=== PATIENT | female | born 1980 | race Caucasian/White ===

== ENCOUNTER → 2016-05-13 | Outpatient (CLI) | payer BC ==
[~2016-05-13] MED LIST: BCPILLS PO; PRLSR20 PO
[2016-05-13 11:17] LABS: BASO % 0.3 %; BASO ABS # 0.02 K/uL (0-0.2); COMPLETE YES; EOS % 1.5 %; HEMATOCRIT 41.6 % (37-47); IG% 0.3 %; LYMPH % 26.2 %; LYMPH ABS # 1.94 K/uL (1.2-3.4); MEAN CELL VOLUME 82.9 fL (80-100); MEAN CORPUSCULAR HEMOGLOBIN 28.5 pg (25-34); MEAN CORPUSCULAR HGB CONC 34.4 g/dl (32-36); MEAN PLATELET VOLUME 10.2 fL (7.4-10.4); MONO % 8.2 %; NEUT % 63.5 %; PLATELET COUNT 292 K/uL (130-400); RED BLOOD COUNT 5.02 M/uL (4.2-5.4)
[2016-05-13 11:58] LABS: ALKALINE PHOSPHATASE 48 U/L (45-117); ALT/SGPT 27 U/L (12-78); AST/SGOT 17 U/L (15-37); BLOOD UREA NITROGEN 13 mg/dl (7-18); BUN/CREATININE RATIO 18.7 (10-20); CALCIUM 9.1 mg/dl (8.5-10.1); CARBON DIOXIDE 26 mmol/L (21-32); CHLORIDE 102 mmol/L (98-107); CREATININE 0.67 mg/dl (0.60-1.20); GLUCOSE 95 mg/dl (70-99); POTASSIUM 3.9 mmol/L (3.5-5.1); SODIUM 138 mmol/L (136-145)
[2016-05-13 12:13] LABS: C-REACTIVE PROTEIN < 0.29 mg/dl (0-0.29); MAGNESIUM 2.3 mg/dl (1.8-2.4); RHEUMATOID FACTOR < 10.0 U/mL (0-15); THYROID STIMULATING HORMONE 0.491 uIu/ml (0.300-4.500)
[2016-05-13 12:26] LABS: LYME DISEASE AB IGG NEG (NEG)
[2016-05-13 12:27] LABS: LYME DISEASE AB IGM NEG (NEG)
== END | disposition home or self-care (01) ==
LOC: C.LAB1850 10:25
PROVIDERS: ATTEND Family Medicine
DX: M25.50 Pain in unspecified joint (principal); R53.83 Other fatigue; R00.2 Palpitations

== ENCOUNTER → 2016-05-14 | Outpatient (CLI) | payer BC ==
--- NOTE | 2016-05-14 11:10 | DIAGNOSTIC IMAGING REPORT ---
THYROID ULTRASONOGRAPHY CLINICAL HISTORY: Thyromegaly COMPARISON STUDY: No previous studies for comparison. FINDINGS: The right lobe measures 5.9 x 1.6 x 1.3 cm. The left lobe measures 5.2 x 1.6 x 1.4 cm. There is minimal gland heterogeneity. No nodules are visualized. IMPRESSION: No thyroid masses identified. Electronically signed by: Peter Borges M.D. 05/14/2016 11:08 AM Dictated Date/Time: 05/14/2016 11:07 AM
== END | disposition home or self-care (01) ==
LOC: C.ULTR 10:35
PROVIDERS: ATTEND Family Medicine
DX: E04.9 Nontoxic goiter, unspecified (principal)

== ENCOUNTER → 2016-05-27 | Outpatient (CLI) | payer BC ==
--- NOTE | 2016-05-27 14:56 | DIAGNOSTIC IMAGING REPORT ---
LEFT FOOT MIN 3 VIEWS ROUTINE CLINICAL HISTORY: R76.8 LENIN [id number] [id number] pain COMPARISON: None. DISCUSSION: The bones and joint spaces appear intact. There is no evidence of fracture, dislocation or bony disease. There is no evidence for soft tissue swelling. IMPRESSION: Negative study. Electronically signed by: Greyson Lara M.D. 05/27/2016 2:55 PM Dictated Date/Time: 05/27/2016 2:53 PM
[2016-05-27 15:58] LABS: TOTAL IRON BINDING CAPACITY 335 mcg/dl (250-450)
== END | disposition home or self-care (01) ==
LOC: C.RAD1850 14:43
PROVIDERS: ATTEND Internal Medicine Rheumatology
DX: M13.0 Polyarthritis, unspecified (principal); Q79.6 Ehlers-Danlos syndromes; R76.8 Other specified abnormal immunological findings in serum

== ENCOUNTER → 2016-06-24 | Outpatient (CLI) | payer BC ==
[2016-06-30 04:37] LABS: ANTI-CENTROMERE AB <1.0 NEG AI (<1.0 NEG); ANTI-SS-A <1.0 NEG AI (<1.0 NEG); ANTI-SS-B <1.0 NEG AI (<1.0 NEG); DNA ds CRITHIDIA NEGATIVE (NEGATIVE); Sm Antibody <1.0 NEG AI (<1.0 NEG)
[2016-07-01 07:18] LABS: ANA TITER 1:40 TITER (<1:40)
== END | disposition home or self-care (01) ==
LOC: C.LAB1850 10:42
PROVIDERS: ATTEND Internal Medicine Rheumatology
DX: R53.83 Other fatigue (principal); R76.8 Other specified abnormal immunological findings in serum; Q79.6 Ehlers-Danlos syndromes

== ENCOUNTER → 2016-11-11 | Outpatient (CLI) | payer BC ==
[~2016-11-11] MED LIST changes: +OPTIRAY 320 IV PRN
--- NOTE | 2016-11-11 14:25 | DIAGNOSTIC IMAGING REPORT ---
(CHEST FOR PE) ANGIO WITH CT DOSE: 399.71 mGy.cm HISTORY: Chest pain dyspnea TECHNIQUE: Multiaxial CT images of the chest were performed following the intravenous administration of contrast to evaluate the pulmonary arteries. Maximal intensity projection images were also obtained. A dose lowering technique was utilized adhering to the principles of ALARA. COMPARISON STUDY: None. FINDINGS: There is a normal caliber thoracic aorta with no evidence for dissection. There is no evidence for pulmonary embolus. No pleural effusions. No pneumothorax. The liver and spleen are unremarkable. No mediastinal or hilar lymphadenopathy. The central airways are patent. The lungs are clear. IMPRESSION: No evidence for pulmonary embolus. The lungs are clear. The above report was generated using voice recognition software. It may contain grammatical, syntax or spelling errors. Electronically signed by: Greyson Lara M.D. 11/11/2016 2:24 PM Dictated Date/Time: 11/11/2016 2:21 PM
== END | disposition home or self-care (01) ==
LOC: C.CTS 14:05
PROVIDERS: ATTEND Internal Medicine Cardiovascular Disease
DX: R06.02 Shortness of breath (principal); R07.89 Other chest pain; N64.4 Mastodynia

== ENCOUNTER → 2016-11-11 | Outpatient (CLI) | payer BC ==
[~2016-11-11] MED LIST changes: -OPTIRAY 320 IV PRN
--- NOTE | 2016-11-11 16:00 | MAMMOGRAPHY REPORT ---
UNILATERAL LEFT DIGITAL DIAGNOSTIC MAMMOGRAM TOMOSYNTHESIS WITH CAD AND TARGETED LEFT ULTRASOUND: 10/17 CLINICAL HISTORY: The patient reports intermittent left breast/chest pain for approximately one month , which she reports is deep to the nipple. She also reports that her clinician noticed asymmetric sw elling of the left axilla compared to the right. The patient denies any palpable lumps or nipple dis charge. TECHNIQUE: Breast tomosynthesis in addition to standard 2D mammography was performed. Current study was also evaluated with a Computer Aided Detection (CAD) system. Left CC and MLO 2-D and tomosynthes is images were obtained. COMPARISON: Comparison is made to exams dated: 12/28/2012 ultrasound and 12/28/2012 mammogram - [facility]. BREAST COMPOSITION: The tissue of the left breast is heterogeneously dense, which may obscure small masses. FINDINGS: There are no suspicious masses, calcifications, or areas of architectural distortion noted mammographically. There has been no significant interval change compared to the prior exam. Targeted ultrasound was performed of the area of pain pointed out by the patient in the left subareol ar breast. No suspicious masses or other suspicious sonographic abnormalities are noted in this jese on. Targeted ultrasound was also performed of the left axillary region in the region of asymmetric s welling pointed out by the patient. No suspicious masses or other suspicious sonographic abnormaliti es are evident. Incidentally noted are morphologically normal left axillary lymph nodes, without zane dence of axillary adenopathy. IMPRESSION: ACR BI-RADS CATEGORY 2: BENIGN, TARGETED ULTRASOUND ACR BI-RADS CATEGORY 2: BENIGN No suspicious mammographic or sonographic abnormality to explain intermittent left breast pain or to explain left axillary swelling. There is no mammographic or targeted sonographic evidence of maligna ncy. Recommend clinical follow-up for left breast/chest complaints, and recommend routine bilateral screening mammograms starting at the age of 40 unless otherwise clinically indicated. The patient has been verbally notified of the results. Approximately 10% of breast cancers are not detected with mammography. A negative mammographic report should not delay biopsy if a clinically suggestive mass is present. Danica Ramirez M.D. /:11/11/2016 13:50:32 Customer Acquisition Specialist: Kalli TAYLOR(Elvia)(Zohra), [facility] letter sent: Normal 1/2 BI-RADS Code: ACR BI-RADS Category 2: Benign Ultrasound BI-RADS: ACR BI-RADS Category 2: Benign
== END | disposition home or self-care (01) ==
LOC: C.MAMM 13:22
PROVIDERS: ATTEND Nurse Practitioner Adult Health
DX: N64.4 Mastodynia (principal)

== ENCOUNTER → 2017-03-24 | Outpatient (CLI) | payer BC ==
[2017-03-24 12:49] LABS: CHOLESTEROL/HDL RATIO 1.8
== END | disposition home or self-care (01) ==
LOC: C.LABPBG 08:31
PROVIDERS: ATTEND Family Medicine
DX: Z13.220 Encounter for screening for lipoid disorders (principal)

== ENCOUNTER 2017-04-29 08:48 | Emergency (ER) | payer BC ==
[~2017-04-29] VITALS: Ht 170.2 cm; Wt 85.0 kg
[2017-04-29 08:54] VITALS: TEMP 36.9; Ht 170.2 cm; Wt 85.0 kg
[2017-04-29] MEDS ORDERED: XYLOCAINE 1%/SOD BICARB 20 ML VIAL INFIL ONE (09:15)
--- NOTE | 2017-04-29 09:49 | EMERGENCY ROOM VISIT NOTE ---
ED Visit Note First contact with patient: 08:55 CHIEF COMPLAINT: Right wrist laceration HISTORY OF PRESENT ILLNESS: This 36-year-old female presents the ER with chief complaint of a laceration to her right wrist. The patient states that she was holding a knife in her left hand and went to hit her belly take with her right hand and accidentally hit her wrist into the knife she was holding in the left hand. She states the bleeding is controlled. The patient denies any numbness and tingling in her hand. The patient's tetanus is up-to-date. The patient is right-hand dominant. REVIEW OF SYSTEMS: 6 system review was performed and was negative unless stated otherwise in history of present illness. PMH: The patient is healthy; there is no significant medical or surgical history. SOCIAL HISTORY: Patient lives with her family. The patient denies any tobacco use but admits to occasional alcohol use. PHYSICAL EXAM: Vital Signs: Were reviewed Reviewed Nurse's notes. GENERAL: 36- year-old white female appears in no acute distress. MENTAL Status: Alert and oriented 3. RIGHT WRIST: There is a 1 cm long laceration on the volar aspect of the wrist. The edges are gaping widely apart. There is no foreign material in the wound and it looks clean. There is no active bleeding. No deep structures such as tendons or nerves are seen in the base of the wound. EMERGENCY DEPARTMENT COURSE: The patient was evaluated. Wound Repair: Complexity: Basic. Verbal consent was obtained after the risks and benefits were explained, including but not limited to bleeding, scarring, infection, pain, and bone/joint /nerve damage. The skin was prepped with betadine and a sterile field set. The wound was anesthetized with 2.0ml of 1% buffered lidocaine. With direct pressure the bleeding subsided. Copious irrigation was performed using sterile saline. The wound was explored for foreign bodies and none found. Debridement was not performed. The wound edges were approximated using 5-0 Ethilon with 3 simple interrupted sutures. Hemostasis and excellent approximation was achieved. Antibacterial ointment and a sterile dressing applied. Detailed wound care instructions and signs and symptoms of infection reviewed with the patient. No complications and the patient tolerated the procedure well. DIAGNOSIS: 1 cm right wrist laceration DISCHARGE INSTRUCTIONS & TREATMENT: Keep wound clean and dry. No water on the area for 12-24 hrs then no soaking until sutures removed. Do not allow any crusting or dried blood to accumulate on sutures. If this occurs, use a 1:1 solution of hydrogen peroxide/water on a Q-tip to clean the wound. Use an antibiotic ointment for 3-4 days, then let wound dry. Suture removal in 8 days. Follow up sooner for any signs of infection (increasing redness, swelling , drainage). Ice and elevate for swelling and pain. Tylenol 650 mg every 6 hrs for pain. Keep covered when in sun until sutures removed then SPF 50 or higher for one year. Vitamin E oil if desired two weeks after suture removal for reduction of scar. Current/Historical Medications Scheduled Control Pills ( Control Pills), 1 TAB PO HS Omeprazole (Prilosec), 20 MG PO HS Allergies Coded Allergies: No Known Allergies (Verified , 04/29/17) Vital Signs Date Time Temp Pulse Resp B/P (MAP) Pulse Ox O2 Delivery O2 Flow Rate FiO2 04/29/17 08:54 36.9 82 16 123/79 98 Departure Information Referrals Grace Irving DO (PCP) Patient Instructions My [facility]
[2017-04-29 09:58] VITALS: BP 107/56; PULSE 72; O2SAT 97
== END 2017-04-29 09:59 | disposition home or self-care (01) ==
LOC: C.EDB 08:50
DX: S61.511A Laceration without foreign body of right wrist, initial encounter (principal); W26.0XXA Contact with knife, initial encounter

== ENCOUNTER → 2017-07-26 | Outpatient (CLI) | payer BC | END | disposition home or self-care (01) | LOC: C.PAPS 10:51 | PROVIDERS: ATTEND Physician Assistant | DX: Z01.419 Encounter for gynecological examination (general) (routine) without abnormal findings (principal) ==